=== PATIENT | female | born 1945 | race Caucasian/White ===

== ENCOUNTER → 2020-02-22 | Day surgery (SDC) | payer OTHER ==
[~2020-02-22] VITALS: Ht 152.4 cm; Wt 69.9 kg
[~2020-02-22] MED LIST: ACAI500C4 PO; ASPI-543 PO; B-CO1TAB8 PO; BUPIVACAINE 0.25% INJ 50ML VIAL ONE; CALC8.5C PO; CETI10TA80 PO; CHOL100055 PO; HEPARIN SODIUM (PORCINE) 5000 UNITS/ML 1ML VIAL ONE; HYDR25TA4 PO; LIDOCAINE W/ EPINEPHRINE 1 % INJ 30ML ONE; LOSA-69 PO; MAGN400C3 PO; MISC1CAP7 PO; MULTCAP45 PO; PANT40TA2 PO; PROBCAP PO; SPECCAP4 PO; TRAM50TA2 PO; ceFAZolin 1GM/50ML 100 ML IV ONE
[2020-02-22 07:21] VITALS: BP 146/66
== END | disposition home or self-care (01) ==
LOC: SUR 07:10
PROVIDERS: ATTEND Surgery
DX: K43.2 Incisional hernia without obstruction or gangrene (principal); E66.9 Obesity, unspecified; Z11.59 Encounter for screening for other viral diseases; Z88.8 Allergy status to other drugs, medicaments and biological substances; Z88.1 Allergy status to other antibiotic agents; Z90.49 Acquired absence of other specified parts of digestive tract; Z98.890 Other specified postprocedural states; Z68.30 Body mass index [BMI] 30.0-30.9, adult; Z53.8 Procedure and treatment not carried out for other reasons
CPT/HCPCS: J0690; J1644; U0003; J3490